=== PATIENT | female | born 1970 | race Caucasian/White ===

== ENCOUNTER → 2023-05-04 | Day surgery (SDC) | payer OTHER | END | disposition home or self-care (01) | LOC: JRADIR 10:26 | PROVIDERS: ATTEND Internal Medicine Allergy & Immunology | PROC: 02HV33Z Insertion of Infusion Device into Superior Vena Cava, Percutaneous Approach (ICD-10-PCS; principal; 2023-05-04) | PROC: B518ZZA Fluoroscopy of Superior Vena Cava, Guidance (ICD-10-PCS; 2023-05-04) | DX: G71.3 Mitochondrial myopathy, not elsewhere classified (principal) | CPT/HCPCS: 36569; 36573; 77001-TC-FY; C1751 ==

== ENCOUNTER 2023-08-30 20:12 | Emergency (ER) | payer OTHER ==
[2023-08-30 20:19] VITALS: BP 147/95; PULSE 99; RESP 20; TEMP 98.1; BMI 29.8
== END 2023-08-30 21:55 | disposition home or self-care (01) ==
LOC: JER 20:12
DX: M79.641 Pain in right hand (principal); M79.642 Pain in left hand
CPT/HCPCS: 73130-TC-LT-FY; 73130-TC-RT-FY; 99284-25